=== PATIENT | male | born 1995 | race African-American/Black ===

== ENCOUNTER 2024-03-16 09:39 | Emergency (ER) | payer OTHER, BC ==
[2024-03-16] MEDS ORDERED: Ibuprofen 200 MG TAB ONE (09:59)
== END 2024-03-16 10:58 | disposition home or self-care (01) ==
LOC: CSHERS 09:39
DX: M62.838 Other muscle spasm (principal); Z55.6 Problems related to health literacy
CPT/HCPCS: 72125